=== PATIENT | female | born 1990 | race African-American/Black ===

== ENCOUNTER 2018-08-09 19:31 | Emergency (ER) | payer OTHER ==
[~2018-08-09] VITALS: Ht 160 cm; Wt 70.3 kg
[2018-08-09] MEDS ORDERED: KETOROLAC TROMETHAMINE 30 MG/ML VIAL IV STA (19:54)
[2018-08-09] MEDS ORDERED: SODIUM CHLORIDE 0.9% 50ML 50 ML ONE (20:16)
[2018-08-09] MEDS ORDERED: IOPAMIDOL 370 MG/ML 200 ML INFUS..BTL INJ ONE (20:16)
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
== END 2018-08-09 22:25 | disposition home or self-care (01) ==
LOC: FSED 19:31
DX: S20.90XA Unspecified superficial injury of unspecified parts of thorax, initial encounter (principal); M25.512 Pain in left shoulder; S80.212A Abrasion, left knee, initial encounter; S80.211A Abrasion, right knee, initial encounter; V43.52XA Car driver injured in collision with other type car in traffic accident, initial encounter; Y92.488 Other paved roadways as the place of occurrence of the external cause; R51 Headache
CPT/HCPCS: 70450; 71260; 73560 ×2; 80053; 81003; 81025; 85025; 99284; J1885; Q9967